=== PATIENT | female | born 2000 | race Caucasian/White ===

== ENCOUNTER 2022-08-29 11:08 | Emergency (ER) | payer OTHER, MEDICAID, SELFPAY ==
[2022-08-29 11:27] VITALS: BP 95/53; PULSE 85; RESP 17; TEMP 36.3; O2SAT 97; BMI 21.9
--- NOTE | 2022-08-29 11:34 | DI.RAD.S_ITS ---
PROCEDURE: XR KNEE RT 3V INDICATIONS: fall, lac TECHNIQUE: 3 views of the knee were acquired. COMPARISON: None. FINDINGS: Bones: No fractures or dislocations. No suspicious bony lesions. Soft tissues: No joint effusion. No suspicious soft tissue calcifications. IMPRESSION: No acute osseous abnormality. Dictated by: Jozef Nur M.D. on 08/29/2022 at 10:55 Approved by: Jozef Nur M.D. on 08/29/2022 at 11:00
--- NOTE | 2022-08-29 12:53 | ED.WOUNDLAC ---
HPI - Wound/Laceration <DUSTY Garcia - Last Filed: 08/29/22 14:23> General Chief Complaint: Wound/Laceration Stated Complaint: sliced knee on glass bleeding needs stitches Time Seen by Provider: 08/29/22 12:09 Source: patient and family Mode of arrival: Wheelchair History of Present Illness HPI narrative: This is a 21-year-old female who presents emergency department with a laceration to her right knee which occurred when she accidentally cut herself on a piece of glass when her legs wiped by it. She denies any foreign body, denies any broken pieces, states that it stopped bleeding and she denies any pain deep to the laceration. It is just over her lateral patella on the right. Bleeding is controlled, she states her last tetanus was 2 years ago. Approximately 2 cm long, linear, without any surrounding swelling. Patient has full range of motion of her knee, denies any leg pain. She states she took some ibuprofen prior to arrival. She also endorses that she is had a a cold for the last few days, states that she is congested, has a sore throat, her daughter was recently diagnosed with a common cold viral illness. He denies any shortness of breath, wheezing, history of asthma, nausea vomiting. She states that she has a productive cough, has been taking DayQuil. She endorses nasal congestion but denies any sinus pain. Related Data Previous Rx's Medication Instructions Recorded cetirizine 1 mg/mL oral solution 2.5 mg (2.5 mL) PO BEDTIME PRN 08/29/22 congestion #60 mL cetirizine 10 mg tablet 20 mg PO BEDTIME congestion #30 08/29/22 tabs fluticasone propionate 50 1 spray intranasal DAILY PRN nasal 08/29/22 mcg/actuation nasal congestion #16 grams spray,suspension (Allergy Relief (fluticasone)) mupirocin 2 % topical ointment 1 applic topical BID #15 grams 08/29/22 Allergies Allergy/AdvReac Type Severity Reaction Status Date / Time No Known Drug Allergies Allergy Verified 08/29/22 11:27 Review of Systems <DUSTY Garcia - Last Filed: 08/29/22 14:23> Review of Systems Narrative: Review of systems is negative for acute abnormalities unless otherwise noted in HPI Patient History <DUSTY Garcia - Last Filed: 08/29/22 14:23> Social History Smoking Status: Never smoker Smoking Status: Never smoker Substance Use Type: does not use Exam <DUSTY Garcia - Last Filed: 08/29/22 14:23> Narrative Exam Narrative: Reviewed vitals signs and nursing notes. General: cooperative, comfortable, in no acute distress, well groomed, afebrile HEENT: symmetrical facial expressions, moist mucous membranes, congestion and rhinorrhea, without frontal or maxillary sinus tenderness. MSK: moves all extremities, neurovascularly intact, no weakness, normal tone, right knee with 2 cm laceration over the patella, no bleeding, this was thoroughly irrigated with normal saline, repaired with sutures without complications, no palpable hematoma or suprapatellar edema Initial Vital Signs Initial Vital Signs: Vital Signs Temperature 97.4 F L 08/29/22 11:27 Pulse Rate 85 08/29/22 11:27 Respiratory Rate 17 08/29/22 11:27 Blood Pressure 95/53 L 08/29/22 11:27 Pulse Oximetry 97 08/29/22 11:27 Oxygen Delivery Method 08/29/22 11:27 <Burke Juarez DO - Last Filed: 08/31/22 08:04> Initial Vital Signs Initial Vital Signs: Vital Signs Temperature 97.4 F L 08/29/22 11:27 Pulse Rate 85 08/29/22 11:27 Respiratory Rate 17 08/29/22 11:27 Blood Pressure 95/53 L 08/29/22 11:27 Pulse Oximetry 97 08/29/22 11:27 Oxygen Delivery Method 08/29/22 11:27 Course <DUSTY Garcia - Last Filed: 08/29/22 14:23> Orders Ordered: ED Orders 08/29/22 11:34 XR knee RT 3V Stat Vital Signs Vital signs: Vital Signs - 8 hr 08/29/22 11:27 Temperature 97.4 F L Pulse Rate 85 Respiratory Rate 17 Blood Pressure 95/53 L Pulse Oximetry 97 Oxygen Delivery Method Room Air <Burke Juarez DO - Last Filed: 08/31/22 08:04> Orders Ordered: ED Orders 08/29/22 11:34 XR knee RT 3V Stat Vital Signs Vital signs: Vital Signs - 8 hr 08/29/22 11:27 Temperature 97.4 F L Pulse Rate 85 Respiratory Rate 17 Blood Pressure 95/53 L Pulse Oximetry 97 Oxygen Delivery Method Room Air MDM - Wound/Laceration <Annmarie Plummer [facility] - Last Filed: 08/29/22 14:23> Imaging Data Extremity x-ray #1: Radiologist's Impression: PROCEDURE:? XR KNEE RT 3V ? INDICATIONS:? fall, lac ? TECHNIQUE:? 3 views of the knee were acquired.? ? COMPARISON:? None. ? FINDINGS:? ? Bones:? No fractures or dislocations.? No suspicious bony lesions.? ? Soft tissues:? No joint effusion.? No suspicious soft tissue calcifications.? ? ? IMPRESSION:? No acute osseous abnormality. ? ? Dictated by: Jozef Nur M.D. on 08/29/2022 at 10:55 ? ? Approved by: Jozef Nur M.D. on 08/29/2022 at 11:00 ? MDM Narrative Medical decision making narrative: This is a 21-year-old female who presents to the emergency department with a right knee laceration after she brushed up against a sharp piece of glass sustaining a 2 cm linear laceration over the right patella. Her last tetanus was 2 years ago, x-ray of the right knee was negative for joint effusion, foreign body, and osseous abnormality. Suture repair was completed with 5 nylon sutures. Patient tolerated well, topical mupirocin ointment was prescribed as well as cetirizine tabs for herself for her upper respiratory illness. He states that 1 of the children in her home tested positive for a common cold viral illness. She states that she had a fever yesterday but it was low-grade. She has been using DayQuil. I encouraged her to use Flonase morning and night, prescribed for her cetirizine liquid and tabs as needed. She understands to have her sutures removed in 7-10 days and encouraged to follow-up with a primary care provider with the number on her discharge paperwork. Patient is appropriate and amenable to discharge home. Vital signs are stable on repeat examination is unremarkable. Patient has been informed of results. Patient has been given strict return to ER precautions for any new or worsening symptoms. Patient understands to follow up closely with outpatient providers as instructed. Patient understands plan and agrees to discharge home. All questions and concerns answered at this time. Discharge Plan Departure Patient Disposition: Home Clinical Impression: Laceration Instructions: Laceration Repair Activity Restrictions/Additional Instructions: *You have been diagnosed with a laceration to your right knee. You have 5 sutures, please have these removed in 7-10 days. Please apply topical antibiotic ointment morning and night, keep it covered with a Band-Aid. For your upper respiratory infection, please use Flonase morning and night, Zyrtec 20 mg at night while your congested, continue with DayQuil and NyQuil as needed. Please bring your child in if they look like they are having a hard time breathing or have noisy breathing. Thank you for coming in, I hope you feel better soon. *What to do: *Please continue to take your regular medications as directed. [ xx] New medication prescriptions sent to your pharmacy: [[facility] ] [ ] New medication written as a paper prescription [ ] No new medications given *Please follow up with your primary care provider in 2-3 days, call for an appointment. Let them know you were seen in the Emergency Department and that we asked that you be seen for follow-up. We will electronically transmit a record of today's note if your PCP is in our system *If you do not have a primary care provider please contact [phone] to establish care with one of [facility] primary care providers. *Return to Emergency Department if you should have any new, worsening, or concerning symptoms, such as [fever greater than 101F, chills, worsening pain, persistent vomiting or other bothersome symptoms]. Prescriptions: New mupirocin 2 % ointment 1 applic topical BID Qty: 15 0RF cetirizine 10 mg tablet 20 mg PO BEDTIME Qty: 30 0RF cetirizine 1 mg/mL solution 2.5 mg PO BEDTIME PRN (Reason: congestion) Qty: 60 0RF fluticasone propionate [Allergy Relief (fluticasone)] 50 mcg/actuation spray,suspension 1 spray intranasal DAILY PRN (Reason: nasal congestion) Qty: 16 0RF Rx Instructions: administer into each nostril Visit Report Forms: Patient Portal/API <Burke Juarez, DO - Last Filed: 08/31/22 08:04> Cosign ED Attending [place] Attestation: I was immediately available in the department for consultation. This documentation has been reviewed and I agree with assessment and plan. Supervised by Burke Juarez DO
--- NOTE | 2022-08-29 13:00 | PC.NURSE ---
DUSTY Bush did exam on patient. first contact for me is discharge.
== END 2022-08-29 13:03 | disposition home or self-care (01) ==
PROVIDERS: Emergency Provider Nurse Practitioner Critical Care Medicine
DX: S81.011A Laceration without foreign body, right knee, initial encounter (principal); W01.110A Fall on same level from slipping, tripping and stumbling with subsequent striking against sharp glass, initial encounter
CPT/HCPCS: 73562; 99282; 99283

== ENCOUNTER 2022-09-04 06:32 | Emergency (ER) | payer OTHER, MEDICAID, SELFPAY ==
[2022-09-04 06:41] VITALS: BP 125/68; PULSE 102; RESP 18; TEMP 36.2; O2SAT 94; BMI 20.1
--- NOTE | 2022-09-04 07:38 | ED.URI ---
HPI - URI/Sore Throat General Chief Complaint: Nasal Problem Stated Complaint: SINUS INFECTION Time Seen by Provider: 09/04/22 07:06 Source: patient Mode of arrival: Ambulatory History of Present Illness HPI Narrative: Patient is a 21-year-old female with no past medical history presenting today with significant nasal congestion and pressure. She has had cough as well unable sleep at night due to cough. Denies body aches or fever. Does not upper respiratory infection has been running through household nephew had a negative COVID test so she does not think it is COVID but she has not personally taken 1. She has bilateral ear pain as well. He has dry nonproductive cough. Last night she was nauseous from coughing, and vomited once Related Data Previous Rx's Medication Instructions Recorded cetirizine 1 mg/mL oral solution 2.5 mg (2.5 mL) PO BEDTIME PRN 08/29/22 congestion #60 mL cetirizine 10 mg tablet 20 mg PO BEDTIME congestion #30 08/29/22 tabs fluticasone propionate 50 1 spray intranasal DAILY PRN nasal 08/29/22 mcg/actuation nasal congestion #16 grams spray,suspension (Allergy Relief (fluticasone)) mupirocin 2 % topical ointment 1 applic topical BID #15 grams 08/29/22 amoxicillin 875 mg-potassium 1 tab PO BID #14 tabs 09/04/22 clavulanate 125 mg tablet Allergies Allergy/AdvReac Type Severity Reaction Status Date / Time No Known Drug Allergies Allergy Verified 08/29/22 11:27 Review of Systems Review of Systems Narrative: GENERAL: Denies chills, fatigue, malaise, fever, sweats, travel HEENT: See HPI RESPIRATORY: See HPI CARDIOVASCULAR: Denies chest pain, palpitations, orthopnea, edema GASTROINTESTINAL: Denies nausea, vomiting, abdominal pain, diarrhea, constipation, melena. : Denies dysuria, frequency, incontinence, hematuria, urinary retention, flank pain. MUSCULOSKELETAL: Denies weakness, joint pain, or bony pain SKIN: No rash, no erythema, no pruritus NEUROLOGIC: Denies weakness, dizziness, headache, numbness, change in speech, confusion PSYCHIATRIC: No concerning psychosocial issues. 12 point review of systems is negative except for those stated above and HPI Patient History Social History Smoking Status: Never smoker Smoking Status: Never smoker Substance Use Type: does not use Exam Initial Vital Signs Initial Vital Signs: Vital Signs Temperature 97.1 F L 09/04/22 06:41 Pulse Rate 102 H 09/04/22 06:41 Respiratory Rate 18 09/04/22 06:41 Blood Pressure 125/68 09/04/22 06:41 Pulse Oximetry 94 09/04/22 06:41 Oxygen Delivery Method 09/04/22 06:41 GENERAL: [Alert 21-year-old female appears to not feel well HEENT: Head atraumatic,EOMI, pupils reactive, tender over frontal sinuses. Both ears tympanic membranes are visualized and fold CARDIOVASCULAR: Regular rate and rhythm without murmurs, rubs or gallops. RESPIRATORY: Breath sounds equal bilaterally, no wheezes rales or rhonchi. EXTREMITIES: Normal range of motion, no clubbing or edema. Neurovascularly intact NEUROLOGICAL: Alert and oriented x4. SKIN: Warm, dry, no laceration, no petechiae, no rashes or lesions. Course Orders Ordered: ED Orders 09/04/22 07:45 Covid-19 + FLU A/B + RSV - PCR Stat Vital Signs Vital signs: Vital Signs - 8 hr 09/04/22 06:41 Temperature 97.1 F L Pulse Rate 102 H Respiratory Rate 18 Blood Pressure 125/68 Pulse Oximetry 94 Oxygen Delivery Method Room Air MDM - URI/Sore Throat Lab Data Labs: Lab Results 09/04/22 Range/Units 07:45 SARS-CoV-2 (PCR) Negative (Negative) Influenza A (RT-PCR) Flu a negative (NEGATIVE) Influenza B (RT-PCR) Flu b negative (NEGATIVE) RSV (PCR) Negative (Negative) MDM Narrative Medical decision making narrative: Patient has had significant sinus pressure low-grade fever general malaise ongoing for greater than 1 week. It is not improving with home remedies. She has negative viral panel. At this time she does qualify for antibiotics for her sinusitis. She overall does not appear septic she is mildly tachycardic which did improve in the ED she she is currently afebrile. Discharge Plan Departure Patient Disposition: Home Clinical Impression: Acute infection of sinus Instructions: DI for Sinusitis Activity Restrictions/Additional Instructions: *You have been diagnosed with sinusitis *What to do: At this time COVID influenza and RSV are all negative. Start on some antibiotics. Try Neti pot and nasal *Continue to take medications as directed Augmentin 875 twice a day for 7 days--> SENT TO [facility] *Follow up with your primary care provider in 2-3 days or call [phone] *Return to ER if you should have increased fever chills headache or any new, worsening or concerning symptoms Prescriptions: New amoxicillin-pot clavulanate 875-125 mg tablet 1 tab PO BID Qty: 14 0RF No Action mupirocin 2 % ointment 1 applic topical BID Qty: 15 0RF cetirizine 10 mg tablet 20 mg PO BEDTIME Qty: 30 0RF cetirizine 1 mg/mL solution 2.5 mg PO BEDTIME PRN (Reason: congestion) Qty: 60 0RF fluticasone propionate [Allergy Relief (fluticasone)] 50 mcg/actuation spray,suspension 1 spray intranasal DAILY PRN (Reason: nasal congestion) Qty: 16 0RF Rx Instructions: administer into each nostril Visit Report Forms: Patient Portal/API
[2022-09-04 08:49] LABS: Influenza A - CEPHEID Flu A NEGATIVE (NEGATIVE); Influenza B - CEPHEID Flu B NEGATIVE (NEGATIVE); Respiratory Syncytial Virus Negative (Negative)
--- NOTE | 2022-09-04 08:56 | PC.NURSE ---
c/o nasal congestion and sinus pressure.
[2022-09-04 09:03] LABS: COVID-19 CEPHEID 4-PLEX PCR Negative (Negative)
== END 2022-09-04 09:32 | disposition home or self-care (01) ==
PROVIDERS: Emergency Provider Emergency Medicine
DX: J01.90 Acute sinusitis, unspecified (principal); R05.9 Cough, unspecified; Z20.822 Contact with and (suspected) exposure to COVID-19
CPT/HCPCS: 0241U; 99281; 99282